=== PATIENT | female | born 1955 | race Asian ===

== ENCOUNTER → 2024-09-24 07:05 | Outpatient (REF) | payer OTHER, SELFPAY ==
[2024-09-24] MEDS: LEXISCAN 0.4 MG IV (08:44)
[2024-09-24] MEDS: FLUSH (NSS) 1 FLUSH IV (08:56)
== END ==
LOC: RCS 07:05
PROVIDERS: ATTENDING PHYSICIAN Internal Medicine Cardiovascular Disease; FAMILY PHYSICIAN Family Medicine
DX: Z01.810 Encounter for preprocedural cardiovascular examination (principal)
CPT/HCPCS: 78452; 93017; A9500; J2785

== ENCOUNTER 2024-10-15 06:25 | Day surgery (SDC) | payer OTHER, SELFPAY ==
[2024-09-20 11:26] LABS: Hemoglobin 14.4 g/dL (12.0-16.0); Mean Corp Hgb Conc. 33.5 g/dL (33.0-37.0); Mean Corpuscular Hgb 29.5 pg (27.0-31.0); Mean Corpuscular Volume 88.1 fL (81.0-99.0); Mean Platelet Volume 10.9 fL (7.4-10.4); Platelet Count 159 10^3/uL (130-400); Red Blood Cell Count 4.88 10^6/uL (4.20-5.40); Red Cell Dist. Width 12.8 % (11.5-14.5); White Blood Cell Count 6.4 10^3/uL (4.8-10.8)
[2024-09-20 13:10] VITALS: BMI 25.7
[2024-09-20 14:10] LABS: ALT (SGPT) 42 U/L (0-35); AST (SGOT) 42 U/L (14-36); Albumin 4.9 g/dl (3.5-5.0); Alkaline Phosphatase 73 U/L (38-126); Blood Urea Nitrogen 16 mg/dl (7-17); Calcium 9.9 mg/dl (8.4-10.2); Carbon Dioxide 28 mmol/L (22-30); Chloride 103 mmol/L (98-107); Estimated Creatinine Clearance 66 ml/min; Glucose 111 mg/dl (70-99); Potassium 4.5 mmol/L (3.5-5.1); Sodium 142 mmol/L (135-145); Total Bilirubin 0.6 mg/dl (0.2-1.3); Total Protein 7.6 g/dl (6.3-8.2); eGFR > 60.00
--- NOTE | 2024-09-20 14:19 | PTCARENOTE ---
Abn ECG, Dr. Hammond notified, Per Dr. Hammond, Clearance needed. Genet at Dr. Kang's office made aware.
[2024-10-15] VITALS (13 sets, daily range): BP systolic 110–183; BP diastolic 59–103; BMI 25.7
[2024-10-15] MEDS: Pyridium 200 MG PO (11:05)
[2024-10-15] MEDS: EMEND 40 MG PO (11:05)
[2024-10-15] MEDS: NORMOSOL-R/PLASMALYTE-A 1000 IV ×2 (11:09→19:45)
[2024-10-15] MEDS: HEPARIN 5000 UNITS SC (13:36)
[2024-10-15] MEDS: DILAUDID 0.25 MG IV (19:46)
[2024-10-15] MEDS: TORADOL IV (20:52)
[2024-10-15] MEDS: LOVENOX 40 MG SC (21:05)
[2024-10-15] MEDS: ROXICODONE 5 MG PO (22:04)
[2024-10-15] MEDS: TORADOL 15 MG IV (23:29)
--- NOTE | 2024-10-16 00:09 | PTCARENOTE ---
Pt arrived from PACU 1999. AAOX3 and VSS. IVF infusing, mishra draining orange urine. admission assessment complete. oriented to room and call bradley. bed locked and in the lowest position.
[2024-10-16] MEDS: NORMOSOL-R/PLASMALYTE-A 1000 IV (02:43)
[2024-10-16 03:10] VITALS: BP 102/55
[2024-10-16] MEDS: TORADOL 15 MG IV ×2 (05:10→11:26)
[2024-10-16] MEDS: ROXICODONE 5 MG PO ×2 (05:59→11:26)
[2024-10-16 07:30] LABS: Hematocrit 36.5 % (37.0-47.0); Hemoglobin 12.5 g/dL (12.0-16.0); Mean Corp Hgb Conc. 34.2 g/dL (33.0-37.0); Mean Corpuscular Hgb 29.6 pg (27.0-31.0); Mean Corpuscular Volume 86.3 fL (81.0-99.0); Platelet Count 158 10^3/uL (130-400); Red Blood Cell Count 4.23 10^6/uL (4.20-5.40); Red Cell Dist. Width 12.5 % (11.5-14.5); White Blood Cell Count 7.8 10^3/uL (4.8-10.8)
[2024-10-16 08:00] VITALS: BP 117/62
--- NOTE | 2024-10-16 08:04 | W.PN.GYN ---
Today's Communication / Plan
-
trail of void
Physician Note
-
68yoF PMH POP and DIANNA currently POD1 s/p robotic total hysterectomy, sacrocolpopexy, posterior colporhapphy and retropubic sling 10/15/24.
S:
Patient was seen on AM rounds. I spoke with patient via [employer]ik interpretor ID [id number].
Patient notes that her night was good overall other than bothersome lower abdominal pain needing ice packs and oxycodone to help alleviate. She has also been constipated having difficulty having BM this morning after her mishra was removed. She
ambulated once with assistance. Of note patient takes oxycodone for chronic pain.
She has been tolerating drinking fluids pending to eat. Denies chest pain, sob, nausea.
O:
Vital Signs
Temp Pulse Resp BP Pulse Ox
97.7 F 59 16 133/72 97
10/16/24 12:31 10/16/24 12:31 10/16/24 12:31 10/16/24 12:31 10/16/24 12:31
Intake and Output
10/15/24 10/16/24 10/17/24
06:59 06:59 06:59
Intake Total 2835 / 2835
Output Total 1525 / 1525
Balance 1310 / 1310
Intake:
Oral fluids 960 / 960
IV fluids (Total) 1875 / 1875
Normosal 500 / 500
Output:
Urine, Mishra 1525 / 1525
Other:
Number of approximated MODERATE 1
amounts of urine
Laboratory Results
10/16/24 06:31
10/16/24 06:31
GA: Well appearing elderly female in NAD
HEENT: normocephalic
Abd: Soft, minimal distension, incisions intact with dermabond mild ecchymosis noted around incisions as well as around suprapubic incisions, no palpable hematoma
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
Ext: negative LE edema b/l
A/P
68yoF PMH POP and DIANNA currently POD1 s/p robotic total hysterectomy, sacrocolpopexy, posterior colporhapphy and retropubic sling 10/15/24. Currently stable.
Monitor vitals and Is/Os
Followup voiding trial
DVT prophylaxis with SCDs and Lovenox
Monitor incisional pain- Continue prn toradol, oxycodone, add lidoderm patches, ice pack
Add simethicone for gas pain
Add Senna-S for constipation
Regular diet
OOB with assistance
Likely discharge home today after pain controlled and passing voiding trial
Followup in office in two weeks
[2024-10-16 08:09] LABS: Blood Urea Nitrogen 13 mg/dl (7-17); Carbon Dioxide 27 mmol/L (22-30); Chloride 103 mmol/L (98-107); Estimated Creatinine Clearance 66 ml/min; Potassium 4.1 mmol/L (3.5-5.1); Sodium 138 mmol/L (135-145)
[2024-10-16] MEDS: TOPROL XL 25 MG PO (08:42)
[2024-10-16] MEDS: MYLICON 80 MG PO (10:22)
--- NOTE | 2024-10-16 11:52 | CM ---
Cm reviewed medical records. Plan for discharge to home with no needs.
PLAN: home no needs.,
[2024-10-16 12:31] VITALS: BP 133/72
== END 2024-10-16 14:40 | disposition home or self-care (01) ==
LOC: SDS 06:25
PROVIDERS: ATTENDING PHYSICIAN Obstetrics & Gynecology; FAMILY PHYSICIAN Family Medicine
DX: N81.3 Complete uterovaginal prolapse (principal); N39.3 Stress incontinence (female) (male); N95.2 Postmenopausal atrophic vaginitis; N36.41 Hypermobility of urethra
CPT/HCPCS: 57425; 58571; 57250; 57288; 88305; 36415; 80051; 80053; 82565; 84520; 85027; 86850; 86900; 86901; 93005; C1713; C1763; C1771